=== PATIENT | male | born 1980 | race Caucasian/White ===

== ENCOUNTER 2018-12-21 07:42 | Emergency (ER) | payer SELFPAY, OTHER ==
[2018-12-21] MEDS: LIDOCAINE 2% (MDV) 20 ML INJ INJ (08:13)
[2018-12-21] MEDS: DIPHTH/TET/ACEL PERTUSS (ADULT) 0.5 ML VIAL IM* (09:32)
== END 2018-12-21 09:57 | disposition home or self-care (01) ==
LOC: FTE 09:57
DX: S81.811A Laceration without foreign body, right lower leg, initial encounter (principal); F17.210 Nicotine dependence, cigarettes, uncomplicated; W27.0XXA Contact with workbench tool, initial encounter; Y92.89 Other specified places as the place of occurrence of the external cause; Z23 Encounter for immunization
CPT/HCPCS: 12002; 90471; 90715; 99283-25

== ENCOUNTER → 2018-12-24 | Emergency (ER) | payer OTHER | END | disposition home or self-care (01) | LOC: FTE 08:26 | DX: Z48.01 Encounter for change or removal of surgical wound dressing (principal); F17.210 Nicotine dependence, cigarettes, uncomplicated | CPT/HCPCS: 99281 ==

== ENCOUNTER 2019-01-01 09:00 | Emergency (ER) | payer OTHER | END 2019-01-01 12:51 | disposition home or self-care (01) | LOC: FTE 12:51 | DX: Z48.02 Encounter for removal of sutures (principal) | CPT/HCPCS: 99281 ==